=== PATIENT | female | born 1985 | race Hispanic/Latino ===

== ENCOUNTER 2017-12-19 12:50 | Emergency (ER) | payer MEDICAID, OTHER ==
[2017-12-19 13:06] LABS: APPEARANCE,URINE Clear (CLEAR); BILIRUBIN,URINE Negative (NEGATIVE); COLOR,URINE Yellow (YELLOW); GLUCOSE, URINE (UA) Negative (NEGATIVE); KETONES,URINE Negative (NEGATIVE); LEUKOCYTE ESTERASE ,URINE Trace (NEGATIVE); NITRATE,URINE Negative (NEGATIVE); OCCULT BLOOD,URINE Small (NEGATIVE); PH,URINE 5.5 (5.0-8.0); PROTEIN,URINE Trace (NEGATIVE)
[2017-12-19 13:08] LABS: HCG,QUAL RESULT NEGATIVE (NEGATIVE)
[2017-12-19 13:14] LABS: BACTERIA,URINE Few /HPF (None Seen); RBC,URINE 0-1 /HPF (0-1)
[2017-12-19] MEDS ORDERED: KETOROLAC TROMETHAMINE 15MG/ML ONE (13:29)
[2017-12-19 13:35] LABS: BASOPHILS % (AUTO) 0.5 % (0.0-5.0); EOSINOPHILS % (AUTO) 0.1 % (0.0-8.0); LYMPHOCYTES % (AUTO) 14.1 % (21.0-51.0); MEAN CORPUSCULAR HEMOGLOBIN 30.7 pg (27.0-33.0); MEAN CORPUSCULAR HGB CONC 34.6 g/dL (32.0-36.0); MEAN CORPUSCULAR VOLUME 88.8 fL (79-99); MONOCYTES % (AUTO) 6.5 % (3.0-13.0); NEUTROPHILS % (AUTO) 78.8 % (40.0-77.0); PLATELET COUNT (AUTO) 219 K/uL (130-400); RED BLOOD CELL COUNT(AUTO) 3.95 MIL/uL (4.00-5.50); RED CELL DISTRIBUTION WIDTH 13.5 % (11.0-15.5); WHITE BLOOD COUNT (AUTO) 10.4 K/uL (4.8-10.8)
[2017-12-19 13:53] LABS: CREATININE 0.8 mg/dL (0.5-1.5); POTASSIUM 3.3 mmol/L (3.5-5.1)
[2017-12-19 13:58] LABS: ALBUMIN 3.9 g/dL (3.5-5.0); BILIRUBIN,TOTAL 0.3 mg/dL (0.2-1.0); TOTAL PROTEIN, SERUM 7.7 g/dL (6.0-8.3)
== END 2017-12-19 15:41 | disposition home or self-care (01) ==
LOC: EDH 12:50
DX: N20.1 Calculus of ureter (principal); Z72.0 Tobacco use
CPT/HCPCS: 36415; 74176; 80053; 81001; 81025; 85025; 96374; 99285; J1885

== ENCOUNTER 2018-07-30 22:42 | Emergency (ER) | payer OTHER ==
[2018-07-30 23:41] LABS: APPEARANCE,URINE Cloudy (CLEAR); BILIRUBIN,URINE Negative (NEGATIVE); COLOR,URINE Dark Yellow (YELLOW); GLUCOSE, URINE (UA) Negative (NEGATIVE); KETONES,URINE 15 mg/dL (NEGATIVE); LEUKOCYTE ESTERASE ,URINE Trace (NEGATIVE); NITRATE,URINE Negative (NEGATIVE); OCCULT BLOOD,URINE Moderate (NEGATIVE); PH,URINE 5.5 (5.0-8.0); PROTEIN,URINE Trace (NEGATIVE)
[2018-07-30 23:44] LABS: HCG,QUAL RESULT NEGATIVE (NEGATIVE)
[2018-07-30 23:53] LABS: BACTERIA,URINE Moderate /HPF (None Seen); RBC,URINE 0-1 /HPF (0-1)
[2018-07-30 23:55] LABS: BASOPHILS % (AUTO) 0.7 % (0.0-5.0); HEMATOCRIT 34.5 % (36-48); LYMPHOCYTES % (AUTO) 18.5 % (21.0-51.0); MEAN CORPUSCULAR HEMOGLOBIN 31.3 pg (27.0-33.0); MEAN CORPUSCULAR HGB CONC 34.9 g/dL (32.0-36.0); MEAN CORPUSCULAR VOLUME 89.7 fL (79-99); MONOCYTES % (AUTO) 6.5 % (3.0-13.0); NEUTROPHILS % (AUTO) 74.3 % (40.0-77.0); NUCLEATED RED BLOOD CELLS 0.1 % (0.0-0.19); PLATELET COUNT (AUTO) 175 K/uL (130-400); RED BLOOD CELL COUNT(AUTO) 3.85 MIL/uL (4.00-5.50); RED CELL DISTRIBUTION WIDTH 13.4 % (11.0-15.5)
[2018-07-31 00:07] LABS: CREATININE 0.8 mg/dL (0.5-1.5); POTASSIUM 3.4 mmol/L (3.5-5.1)
[2018-07-31] MEDS ORDERED: CEFTRIAXONE SODIUM 1 GM ONE (00:17)
[2018-07-31] MEDS ORDERED: LIDOCAINE HCL-MPF 1% 2ML VIAL ONE (00:17)
== END 2018-07-31 00:27 | disposition home or self-care (01) ==
LOC: EDH 22:42
DX: N39.0 Urinary tract infection, site not specified (principal); R51 Headache; Z90.49 Acquired absence of other specified parts of digestive tract
CPT/HCPCS: 36415; 80048; 81001; 81025; 84702; 85025; 96372; 99283; J0696; J3490

== ENCOUNTER 2018-09-24 08:04 | Emergency (ER) | payer SELFPAY ==
[2018-09-24] MEDS ORDERED: DEXAMETHASONE SOD PHOSPHATE 4 MG/ML 1ML VIAL ONE (09:04)
[2018-09-24] MEDS ORDERED: PROCHLORPERAZINE EDISYLATE 10 MG/2 ML VIAL ONE (09:04)
[2018-09-24] MEDS ORDERED: KETOROLAC TROMETHAMINE 30MG/ML ONE (09:04)
== END 2018-09-24 10:35 | disposition home or self-care (01) ==
LOC: EDH 08:04
DX: J32.9 Chronic sinusitis, unspecified (principal); G44.52 New daily persistent headache (NDPH); Z90.49 Acquired absence of other specified parts of digestive tract
CPT/HCPCS: 81025; 96372 ×3; 99283; J0780; J1100; J1885

== ENCOUNTER 2019-10-23 17:57 | Emergency (ER) | payer MEDICAID ==
[2019-10-23 18:54] LABS: APPEARANCE,URINE CLOUDY (CLEAR); BILIRUBIN,URINE NEGATIVE (NEGATIVE); COLOR,URINE YELLOW (YELLOW); GLUCOSE, URINE (UA) NEGATIVE (NEGATIVE); KETONES,URINE NEGATIVE (NEGATIVE); LEUKOCYTE ESTERASE ,URINE MODERATE (NEGATIVE); NITRATE,URINE NEGATIVE (NEGATIVE); OCCULT BLOOD,URINE MODERATE (NEGATIVE); PH,URINE 6.5 (5.0-8.0); PROTEIN,URINE TRACE mg/dL (NEGATIVE); UROBILINOGEN,URINE 0.2 mg/dL (0.2-1.0)
[2019-10-23] MEDS ORDERED: CEFTRIAXONE SODIUM 1 GM ONE (19:19)
[2019-10-23] MEDS ORDERED: LIDOCAINE HCL-MPF 1% 2ML VIAL ONE (19:19)
[2019-10-23 19:29] LABS: BACTERIA,URINE Few /HPF (None Seen); SQUAMOUS EPITHELIAL CELL,UR Few /HPF (0-2); WBC,URINE 51-100 /HPF (0-1)
[2019-10-23 19:30] LABS: MUCUS,URINE Few LPF (None Seen); TRANSITIONAL EPI CELLS,URINE Few /HPF (None Seen)
[2019-10-23] MEDS ORDERED: PHENAZOPYRIDINE HCL 200 MG TABLET ONE (19:34)
== END 2019-10-23 20:09 | disposition home or self-care (01) ==
LOC: EDH 17:57
DX: N39.0 Urinary tract infection, site not specified (principal); Z90.49 Acquired absence of other specified parts of digestive tract; Z72.0 Tobacco use
CPT/HCPCS: 81001; 81025; 87077; 87088; 87186; 96372; 99283; J0696; J3490

== ENCOUNTER 2023-05-15 08:06 | Emergency (ER) | payer MEDICAID, OTHER ==
[~2023-05-15] VITALS: Ht 152.4 cm; Wt 63.5 kg
[2023-05-15] MEDS ORDERED: TETANUS/DIPHTHERIA TOXOID [ADULT] 0.5 ML VIAL IM ONE (10:30)
[2023-05-15 11:31] VITALS: BP 133/81; PULSE 78; RESP 18; O2SAT 98
== END 2023-05-15 11:32 | disposition home or self-care (01) ==
LOC: EDH 08:06
DX: S50.871A Other superficial bite of right forearm, initial encounter (principal); M25.511 Pain in right shoulder; Z90.49 Acquired absence of other specified parts of digestive tract; Z88.6 Allergy status to analgesic agent; Z88.8 Allergy status to other drugs, medicaments and biological substances; W55.81XA Bitten by other mammals, initial encounter; Y93.89 Activity, other specified; Y92.89 Other specified places as the place of occurrence of the external cause; Y99.8 Other external cause status
CPT/HCPCS: 90471; 90714